=== PATIENT | male | born 1975 | race Caucasian/White ===

== ENCOUNTER 2020-07-24 08:43 | Outpatient (CLI) | payer BC, SELFPAY ==
--- NOTE | ~2020-07-24 | CT_ITS ---
EXAMINATION: CTA chest PE protocol DATE: 07/24/2020 09:14 INDICATION: Shortness of breath. TECHNIQUE: Computed tomography angiography (CTA) of the chest was performed with 100 mL Omnipaque-350 intravenous contrast timed to evaluate the pulmonary arteries. Coronal maximum intensity projection 3D-reconstructions were created by the technologist. Automated exposure control and iterative reconst ruction technique were employed. The dose-length product was 973.55 mGy-cm. COMPARISON: CT abdomen and pelvis 10/07/2017 FINDINGS: The lung volumes are small. There are groundglass opacities in all lobes, likely atelectasi s. No pleural effusion. The heart size is normal. No pericardial effusion. Calcified right hilar lymp h nodes are consistent with old granulomatous disease. There is no pulmonary embolus. There is mild t horacic spondylosis. IMPRESSION: 1. No pulmonary embolus. 2. Small lung volumes with groundglass opacities in all lobes, likely mild atelectasis. Reviewed, dictated and finalized at location B. IMPRESSION: 1. No pulmonary embolus. 2. Small lung volumes with groundglass opacities in all lobes, likely mild atel ectasis.
== END 2020-07-24 08:44 | disposition home or self-care (01) ==
PROVIDERS: PCP Physician Assistant; Visit Provider Physician Assistant
DX: R79.1 Abnormal coagulation profile (principal); R91.8 Other nonspecific abnormal finding of lung field
CPT/HCPCS: 71275; Q9967

== ENCOUNTER 2021-04-22 07:34 | Outpatient (CLI) | payer BC, SELFPAY ==
--- NOTE | 2021-04-28 15:34 | P.SLEEP_ITS ---
Sleep Study - Home Unattended Date of Study: 04/22/21 Ordering Provider: Jennyfer Aleman, PAGillianC Interpreting Provider: Deanne Tidwell DO Home Sleep Study Type: Apnea Link Air Height: 1.88 m Weight: 138.346 kg Body Mass Index: 39.1 Neck Circumference (inches): 18 Reason for Sleep Study Witnessed apneas by spouse Sleep History The patient is a 46-year-old male with hypertension, anxiety, depression, ADHD, hypogonadism, and Chiari malformation that had a home sleep test ordered by his primary care due to the patient's spouse witnessing apneic events. *The patient did not bring back to sleep intake forms.* [facility] Past Medical History Medical History ADHD (attention deficit hyperactivity disorder), inattentive type Anxiety Chiari malformation Depression HTN (hypertension) Medications Home Medications Medication Instructions Recorded Confirmed Type bupropion HCl 150 mg PO QAM 04/28/21 04/28/21 History losartan 50 mg PO DAILY 04/28/21 04/28/21 History methylphenidate HCl 18 mg PO QAM 04/28/21 04/28/21 History methylphenidate HCl 54 mg PO QAM 04/28/21 04/28/21 History sildenafil (pulm.hypertension) See Rx Instructions .ROUTE .COMPLEX 04/28/21 04/28/21 History Sleep Procedure This test was performed using 4 channel monitoring including respiratory effort channel, snoring channel, heart rate channel, and oxygen saturation channel. This study was scored using CMS guidelines. Sleep Architecture The patient had a total recording time 10 hours 36 minutes and total monitoring time of 9 hours 11 minutes. The patient spent 3 hours 12 minutes, 34.8% of tunneled monitoring time in the supine position. Respiratory Analysis The patient had an AHI of 23.1 and central apnea index of 0.3. The supine AHI was 33.1. The patient had 5 apneas and 207 hypopneas. No Wilian-Naylor respirations were seen. Oximetry Data The patient had a baseline oxygen saturation of 97% and an average oxygen saturation of 94%. The lowest recorded oxygen saturation was 81%. The patient had 213 oxygen desaturations resulting in an oxygen desaturation index of 23.2. The patient spent 38 minutes, 7% of total monitoring time with an oxygen saturation less than 88%. Snoring Profile Snoring was present throughout the majority of the study. Cardiac Profile The patient had an average pulse 65 beats per minute with a minimum pulse 47 beats per maximum pulse of 106 beats per minute. Assessment and Plan Assessment and Plan (1) RAMA (obstructive sleep apnea): Code(s): G47.33 - Obstructive sleep apnea (adult) (pediatric) Status: Acute Assessment and Plan: The patient had an AHI of 23.1 which is consistent with moderate sleep apnea. Due to the patient's Chiari malformation, I recommend that the patient have an in-lab PAP titration study. The patient is more predisposed to developing central sleep apnea due to his Chiari malformation. Data The data obtained during this sleep study is adequate for interpretation. Certification This sleep study has been reviewed by a board certified sleep medicine physician.
[2021-04-28 15:49] VITALS: BMI 39.1
== END 2021-04-23 12:05 | disposition home or self-care (01) ==
LOC: ANHCSM 07:35
PROVIDERS: PCP Physician Assistant; Visit Provider Physician Assistant
DX: R06.81 Apnea, not elsewhere classified (principal)
CPT/HCPCS: 95806

== ENCOUNTER 2021-06-19 07:40 | Outpatient (CLI) | payer BC, SELFPAY ==
--- NOTE | 2021-07-03 08:54 | WPDSLEEPSTUD ---
Sleep Study Date of Study: 06/19/21 Ordering Provider: Jennyfer Aleman PA-C UNKNOWN,DOCTOR Interpreting Physician: Leesa Gillespie MD Sleep Study Type: CPAP Titration Height: 1.88 m Weight: 136.078 kg Body Mass Index: 38.5 Neck Circumference (inches): 18 Moffit: 4 Reason for Sleep Study * 04/22/2021 Home Sleep Apnea Test with moderate obstructive sleep apnea, apnea-hypopnea index 23.2, desaturation to 81%; patient presents for CPAP titration Sleep History Paul Mills is a 46 year old man with Chiari malformation, depression and ADHD. The Chiari malformation predisposes him to central apneas, therefore he presents for an in-lab CPAP titration. His sleep complaints included waking often at night, restless sleep and loud snoring. He occasionally awakens at night feeling short of breath. He does not wake at night with heartburn, belching or coughing. Rarely has trouble sleeping with a cold. He constatnly has breathing problems at night observed by others. He occasionally sweats excessively at night. He rarely notices his heart pounding at night, and rarely falls asleep in the day. He does not fall asleep involuntarily or while driving. There is not loss of muscle tone with strong emotion. He does not have daytime problems due to excessive sleepiness. He does not feel paralyzed on waking or falling asleep, is not afraid to go to sleep, does not have nightmares. He does not remember his dreams or have racing thought. He frequently feels depressed. He rarely has anxiety. Denies muscular tension, parts of his body jerking at night, kicking during sleep, or having uncomfortable feelings in his legs at night. He does not have leg pain at night, nor does he have morning jaw pain. He rarely grinds his teeth at night. He is not bothered by pain in the day or during the night. He is not waking up feeling stiff in the morning with sore muscles or pain in the neck and spine. He has concentration difficulties. Normal bedtime on week nights is between 8:00 p.m. and 9:00 p.m., taking 20 - 45 minutes to fall asleep, sometimes as long as an hour or two hours. He typically wakes 3-4 times at night, sometimes makes a trip to the bathroom, and then returns to sleep quickly. He wakes between 4:00 am and 5:00 a.m. on weekdays. On weekends, he goes to bed between 9:00 p.m. and 10:00 p.m., and wakes between 5:00 a.m. and 7:00 a.m.. He does not take naps, although a short nap may be refreshing. He feels better in the morning compared to other times of day. Habits: Former tobacco smoker. Caffeine: 4-5 cups a day. No alcohol or recreational drugs. [facility] Past Medical History Medical History ADHD (attention deficit hyperactivity disorder), inattentive type Anxiety Chiari malformation Depression HTN (hypertension) Social History Social History (Updated 07/03/21 @ 13:25 by Leesa Gillespie MD) Smoking status: Former smoker Medications Home Medications Medication Instructions Recorded Confirmed Type bupropion HCl 150 mg PO QAM 04/28/21 04/28/21 History losartan 50 mg PO DAILY 04/28/21 04/28/21 History methylphenidate HCl 18 mg PO QAM 04/28/21 04/28/21 History methylphenidate HCl 54 mg PO QAM 04/28/21 04/28/21 History sildenafil (pulm.hypertension) See Rx Instructions .ROUTE .COMPLEX 04/28/21 04/28/21 History Sleep Procedure This test was performed using the Crew multiple channel system including EOG, EEG, submental EMG, EKG, nasal and oral airflow using thermistors and nasal pressure sensors, chest and abdominal belts for body position data, and pulse oximetry. Video monitoring was also performed. The study was scored using CMS guidelines. The patient was started on CPAP using a medium ResMed N30 I nasal mask and humidity with initial pressure 5 cm with 2 cm EPR added for comfort. Pressure was titrated, and at 7 cm he switched to a medium ResMed AirTouch F20 full face mask. The final pressure wa
[2021-07-03 13:33] VITALS: BMI 38.5
== END 2021-06-20 05:27 | disposition home or self-care (01) ==
LOC: ANHCSM 07:41
PROVIDERS: PCP Physician Assistant
DX: G47.33 Obstructive sleep apnea (adult) (pediatric) (principal)
CPT/HCPCS: 95811

== ENCOUNTER 2022-01-21 10:48 | Emergency (ER) | payer BC, SELFPAY ==
[2022-01-21 11:03] VITALS: BP 150/83; PULSE 80; RESP 18; TEMP 36.7; O2SAT 98
--- NOTE | 2022-01-21 11:19 | ED.URI ---
HPI - URI/Sore Throat General Chief Complaint: Upper Respiratory Infection Stated Complaint: body ache, sore throat, chest congestion Time Seen by Provider: 01/21/22 11:19 Source: patient Mode of arrival: ambulatory Limitations: no limitations History of Present Illness HPI Narrative: 46-year-old male presents with complaint of sore throat, fatigue, body, decreased appetite for 4 days. Reports that sore throat is getting progressively worse. Denies nausea vomiting diarrhea. No cough or congestion. All systems reviewed and negative except as noted above. Related Data Home Medications Medication Instructions Recorded Confirmed losartan 50 mg tablet 50 mg PO DAILY 04/28/21 04/28/21 amlodipine 2.5 mg tablet 2.5 mg PO DAILY 01/21/22 01/21/22 Allergies Allergy/AdvReac Type Severity Reaction Status Date / Time No Known Allergies Allergy Verified 01/21/22 11:29 Review of Systems Review of Systems: CONSTITUTIONAL: Denies fever, chills, or sweats. reports fatigue and decreased appetite. EYES: Denies visual changes, redness, or discharge. ENT: Denies rhinorrhea, congestion . Reports sore throat. Denies otalgia. CARDIOVASCULAR: Denies chest pain, palpitations, or edema. RESPIRATORY: Denies cough or dyspnea. GASTROINTESTINAL: Denies abdominal pain, nausea, vomiting, or diarrhea. GENITOURINARY: Denies dysuria or hematuria. SKIN: Denies rash or itching. MUSCULOSKELETAL: Denies back pain, joint pain . Reports myalgia. NEUROLOGIC: Denies headache, numbness, or weakness. PSYCHIATRIC: Denies anxiety or depression. All other systems reviewed are negative, except as documented in HPI. PMFSH Past Medical History Medical History ADHD (attention deficit hyperactivity disorder), inattentive type Anxiety Chiari malformation Depression HTN (hypertension) Social History Social History (Updated 07/03/21 @ 13:25 by Leesa Gillespie MD) Smoking status: Former smoker Comments At time of signature, agree with nursing past medical, surgical, social and family history. There is no relevant family history pertinent to the presenting complaint. Exam Narrative: GENERAL: This is a well-nourished, well-developed patient, in no apparent distress. HEAD: normocephalic, atraumatic. EYES: PERRL. Sclera clear/white. Vision is grossly intact. EARS: External ears normal, auditory canals clear and without drainage, TMs normal without perforation. Hearing grossly intact. NOSE: External nose normal with no obvious nasal discharge, nares without redness, no rhinorrhea. THROAT: Mucous membranes moist. Beefy red, swollen. No exudates. NECK: Neck supple, Tender cervical lymphadenopathy, no masses or thyromegaly. CARDIOVASCULAR: Regular rate and rhythm without murmurs, gallops, or rubs. RESPIRATORY: Clear to auscultation. Breath sounds equal bilaterally. No wheezes, rales, or rhonchi. SKIN: warm, Dry, intact with no suspicious lesions or rash, good texture and turgor. NEURO: awake, alert, and oriented to person, place and time. There were no obvious focal neurologic abnormalities. EXTREMITIES: No joint tenderness, effusion, or edema noted. Course Course Level of Care: Express Care Visit Vital Signs Vital signs: Vital Signs Temperature 36.7 C 01/21/22 11:03 Pulse Rate 80 01/21/22 11:03 Respiratory Rate 18 01/21/22 11:03 Blood Pressure 150/83 H 01/21/22 11:03 Pulse Oximetry 98 01/21/22 11:03 Oxygen Delivery Room Air 01/21/22 11:03 Temperature 36.7 C 01/21/22 11:03 Pulse Rate 80 01/21/22 11:03 Respiratory Rate 18 01/21/22 11:03 Blood Pressure 150/83 H 01/21/22 11:03 Pulse Oximetry 98 01/21/22 11:03 Oxygen Delivery Room Air 01/21/22 11:03 reviewed MDM - URI/Sore Throat MDM Narrative Medical decision making narrative: Patient is aware of diagnosis, understands and agrees to treatment plan. Anticipatory guidance given. Patient
== END 2022-01-21 11:30 | disposition home or self-care (01) ==
PROVIDERS: Emergency Provider Nurse Practitioner Family; PCP Physician Assistant
DX: J02.0 Streptococcal pharyngitis (principal); I10 Essential (primary) hypertension; Z87.891 Personal history of nicotine dependence
CPT/HCPCS: 87880; 99213; G0463

== ENCOUNTER 2022-03-21 13:35 | Emergency (ER) | payer BC, SELFPAY ==
--- NOTE | 2022-03-21 13:43 | ED_ITS ---
HPI - URI/Sore Throat General Stated Complaint: Unknown Time Seen by Provider: 03/21/22 13:36 Related Data Home Medications Medication Instructions Recorded Confirmed losartan 50 mg tablet 50 mg PO DAILY 04/28/21 01/21/22 amlodipine 2.5 mg tablet 2.5 mg PO DAILY 01/21/22 01/21/22 Allergies Allergy/AdvReac Type Severity Reaction Status Date / Time No Known Allergies Allergy Verified 01/21/22 11:29 [facility], [facility] Past Medical History Medical History ADHD (attention deficit hyperactivity disorder), inattentive type Anxiety Chiari malformation Depression HTN (hypertension) Social History Social History (Updated 07/03/21 @ 13:25 by Leesa Gillespie MD) Smoking status: Former smoker Discharge Plan Discharge Prescriptions: No Action amoxicillin 500 mg tablet 500 mg PO Q12H 10 Days Qty: 20 0RF amlodipine 2.5 mg tablet 2.5 mg PO DAILY losartan 50 mg Tablet 50 mg PO DAILY Follow-up/Referrals: Love,RAHEL Burger [Primary Care Provider] -
[2022-03-21 13:46] VITALS: BP 168/92; PULSE 68; RESP 18; TEMP 36.4; O2SAT 99
--- NOTE | 2022-03-21 13:47 | ED.SKABFB ---
HPI - Skin/Abscess/Foreign Bdy General Stated complaint: Unknown Time Seen by Provider: 03/21/22 13:36 Source: patient Mode of arrival: ambulatory Limitations: no limitations History of Present Illness HPI narrative: Mr. Mills is a 47-year-old male patient presenting to clinic today with complaints of pain to his right lateral thumb. States that he may have something under the nail. Started bothering him last night stay. Does wear gloves at work. Does not recall being struck by anything. Area is swollen, erythemic, red, and tender. Related Data Home Medications Medication Instructions Recorded Confirmed losartan 50 mg tablet 50 mg PO DAILY 04/28/21 01/21/22 amlodipine 2.5 mg tablet 2.5 mg PO DAILY 01/21/22 01/21/22 Allergies Allergy/AdvReac Type Severity Reaction Status Date / Time No Known Allergies Allergy Verified 01/21/22 11:29 Review of Systems Review of Systems: Pertinent positives per HPI. Patient denies any fever, chills, rash, headache, visual changes, dizziness, cough, runny nose, sore throat, shortness of breath, chest pain, palpitations, nausea, vomiting, diarrhea, constipation, abdominal pain, or any urinary issues. [facility] Past Medical History Medical History ADHD (attention deficit hyperactivity disorder), inattentive type Anxiety Chiari malformation Depression HTN (hypertension) Social History Social History Smoking status: Former smoker Comments At the time of my signature, I reviewed and agree with the nursing past medical, surgical, social, and family history. There is no relevant family history pertinent to the patient complaint. Exam Narrative: General: Well-developed, well nourished, in no apparent distress Head: Normocephalic, atraumatic. Cardio: Regular rate and rhythm, s1 and s2 normal, no murmur appreciated. Resp: Clear to auscultation bilaterally, no rhonchi, rales, wheezing or rubs. Integumentary: [place], warm, and dry, intact without lesion, redness, swelling, tenderness, and erythema noted to the left lateral thumb-dark brown discoloration under skin. Course Course Emergency Course: Portions of this record may have been created with voice recognition software. Level of Care: Express Care Visit Vital Signs Vital signs: Vital Signs Temperature 36.4 C 03/21/22 13:46 Pulse Rate 68 03/21/22 13:46 Respiratory Rate 18 03/21/22 13:46 Blood Pressure 168/92 H 03/21/22 13:46 Pulse Oximetry 99 03/21/22 13:46 Oxygen Delivery Room Air 03/21/22 13:46 Temperature 36.4 C 03/21/22 13:46 Pulse Rate 68 03/21/22 13:46 Respiratory Rate 18 03/21/22 13:46 Blood Pressure 168/92 H 03/21/22 13:46 Pulse Oximetry 99 03/21/22 13:46 Oxygen Delivery Room Air 03/21/22 13:46 Vital signs reviewed Procedures Abscess I/D thumb: Date of Incision: 03/21/22 Side (if applicable): left Local Anesthetic: lidocaine 1% Amount of anesthesia used (mL): 0.5 Technique: needle aspiration Amount of fluid expressed (mL): 1 Irrigation: Yes Packing used?: none I&D Results: Pus and Blood Abcess I&D Additional Comments: Verbal consent obtained for incision and drainage. Risk and benefits explained and patient voiced understanding. Area was cleansed with Primaderm. Area was prepped and draped using sterile technique. 25 gauge needle was then used to instill (0.5) ml of lidocaine without epi into the wound edges. Patient tolerated well and anesthesia was appropriate. An 18 gauge needle was then used to make a stab incision over the abscess. Brown/white bloody exudate expressed from cavity. Patient tolerated procedure well. No soft tissue foreign body visualized or palpable. MDM - Skin/Abscess/Foreign Bdy MDM Narrative Medical decision making narrative: At the time of visit patient is
== END 2022-03-21 14:00 | disposition home or self-care (01) ==
PROVIDERS: Emergency Provider Nurse Practitioner Family; PCP Physician Assistant
DX: L02.512 Cutaneous abscess of left hand (principal); I10 Essential (primary) hypertension; Z87.891 Personal history of nicotine dependence; F90.9 Attention-deficit hyperactivity disorder, unspecified type
CPT/HCPCS: 26010; 99213; G0463

== ENCOUNTER 2022-08-12 17:41 | Emergency (ER) | payer BC, SELFPAY | END 2022-08-12 18:34 | disposition home or self-care (01) | PROVIDERS: Emergency Provider Nurse Practitioner Family; PCP Physician Assistant | DX: J02.9 Acute pharyngitis, unspecified (principal); R53.83 Other fatigue; Z20.822 Contact with and (suspected) exposure to COVID-19 | CPT/HCPCS: 86308; 87070; 87081; 87426; 87880; 99213; C9803; G0463 ==

== ENCOUNTER 2023-10-23 13:46 | Emergency (ER) | payer BC, SELFPAY ==
--- NOTE | ~2023-10-23 | XR_ITS ---
EXAMINATION: XR chest 1V portable Exam Date/Time: 10/23/2023 17:53 CDT HISTORY: cough, sob Comparison: CTPA 07/24/2020. RESULT: Lines, tubes, and devices: None. Lungs and pleura: Clear. Cardiomediastinal silhouette: Stable. Other: No acute osseous or upper abdominal finding. IMPRESSION: No acute cardiopulmonary process. Reviewed, dictated and finalized at location K.
[2023-10-23 13:47] VITALS: BP 147/81; PULSE 98; RESP 16; TEMP 36.7; O2SAT 96
[2023-10-23 16:59] VITALS: BP 152/101; PULSE 81; RESP 17; RESP 18; O2SAT 96
--- NOTE | 2023-10-23 17:37 | ECG_ITS ---
Test Date: 2023-10-23 17:50:44 Measurements Intervals [place] Rate: 92 P: 48 DC: 145 QRS: -60 QRSD: 112 T: 30 QT: 346 QTc: 428 Interpretive Statements SINUS RHYTHM WITH SINUS ARRHYTHMIA POSSIBLE LEFT ATRIAL ENLARGEMENT [-0.1mV P WAVE IN V1/V2] INCOMPLETE RIGHT BUNDLE BRANCH BLOCK [90+ ms QRS DURATION, TERMINAL R IN V1/V2, 40+ ms S IN I/aVL/V4/V5/V6] LEFT ANTERIOR FASCICULAR BLOCK [QRS AXIS <= -45, QR IN I, RS IN II] No previous ECG available for comparison Electronically Signed On 10-24-2023 10:33:48 CDT by Jerome Mcclain M.D.
[2023-10-23] MEDS: SODIUM CHLORIDE 0.9% IV 1,000 ML 999 ML IV CONT ×2 (17:42→18:57)
--- NOTE | 2023-10-23 17:52 | ED.RECABL ---
HPI - Recheck/Abnormal Lab/Rx General Chief Complaint: Recheck/Abnormal Lab/Rx Stated Complaint: OVERHEATED YESTERDAY Time Seen by Provider: 10/23/23 16:47 History of Present Illness HPI narrative: Patient is a 48-year-old male presenting with concerns for dehydration. Patient states that he works outside. Yesterday he was outside in the heat and he feels that he is just not recovered. He is feeling with weak and keeps having muscle cramps. 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 He denies chest pain, states that he felt a little short of breath walking earlier. States that he feels like he is not able to hydrate enough orally. Related Data Home Medications Medication Instructions Recorded Confirmed losartan 50 mg tablet 50 mg PO DAILY 04/28/21 03/21/22 amlodipine 2.5 mg tablet 2.5 mg PO DAILY 01/21/22 03/21/22 methylphenidate HCl 54 mg 54 mg PO DAILY 03/21/22 03/21/22 tablet,extended release 24 hr Allergies Allergy/AdvReac Type Severity Reaction Status Date / Time No Known Allergies Allergy Verified 03/21/22 14:10 Review of Systems Review of Systems: All systems reviewed & are unremarkable except as noted in HPI and below PMFSH Past Medical History Medical History ADHD (attention deficit hyperactivity disorder), inattentive type Anxiety Chiari malformation Depression HTN (hypertension) Social History Social History Smoking status: Former smoker Exam Narrative: GENERAL: Well-appearing, in no acute distress, very pleasant cooperative HEAD: Normocephalic, atraumatic. EYES: PERRLA and EOMI. ENT: Mucous membranes moist. NECK: Supple. CHEST: Clear to auscultation. No respiratory distress. HEART: Regular rate and rhythm ABDOMEN: Soft, nontender, nondistended EXTREMITIES: Normal range of motion. No edema. No muscle soreness with palpation of legs or arms SKIN: Warm, dry, no rash. NEURO: No focal deficits. Alert and oriented x3. PSYCH: Normal mood and affect. Course Vital Signs Vital signs: Vital Signs Temperature 98.1 F 10/23/23 13:47 Pulse Rate 98 10/23/23 13:47 Respiratory Rate 16 10/23/23 13:47 Blood Pressure 147/81 H 10/23/23 13:47 Pulse Oximetry 96 10/23/23 13:47 Temperature 98.1 F 10/23/23 13:47 Pulse Rate 81 10/23/23 16:59 Respiratory Rate 17 10/23/23 16:59 Blood Pressure 152/101 H 10/23/23 16:59 Pulse Oximetry 96 10/23/23 16:59 Fraction of Inspired Oxygen 97 10/23/23 16:59 MDM - Recheck/Abnormal Lab/Rx MDM Narrative Medical decision making narrative: 48-year-old male presenting with concerns for dehydration after working in the heat all day yesterday. Patient is slightly hypertensive, otherwise vitals are within normal limits. Exam is remarkable for the above. Chest x-ray is unremarkable. EKG per my interpretation shows normal sinus rhythm, incomplete right bundle-branch, no ST elevations or depressions. Blood work with elevated creatinine and BUN. CK is only very minimally elevated. Does not meet criteria for rhabdomyolysis. Patient received a L of fluid states that he is already starting to feel better. Will give him another L and then feel he is safe for discharge. Patient actually just saw a new PCP last week and he has outpatient blood work set up for this Wednesday. Advised that he call his PCP on Wednesday to let them know he was here. Appropriate return precautions given. Discharged in stable condition. Differential Diagnosis Differential diagnosis: Likely other (Dehydration, muscle spasms, cramps, electrolyte derangement) Medical Records Attestation: I reviewed the patient's medical records. Lab Data Attestation: I reviewed the patient's lab results. 10/23/23 17:44 10/23/23 17:44 Labs: Lab Results 10/23/23 Range/Units 17:44 WBC 7.3 (4.5-10.0) K/mm3 RBC 5.56
[2023-10-23 17:56] LABS: Basophils Absolute Auto 0.1 K/mm3 (0.0-0.1); Basophils Percent Auto 0.8 % (0.2-1.2); Eosinophils Absolute Auto 0.2 K/mm3 (0-0.3); Eosinophils Percent Auto 2.5 % (0-4.4); Hematocrit 50.9 % (42.0-52.0); Hemoglobin 17.8 g/dL (14.0-18.0); Immature Granulocyte Absolute 0.02 K/mm3 (0.00-0.031); Immature Granulocyte Percent A 0.3 % (0-0.5); Lymphocytes Absolute Auto 2.49 K/mm3 (0.9-3.2); Lymphocytes Percent Auto 34.3 % (18.3-44.2); Mean Corpuscular Volume 91.5 fl (80-100); Mean Platelet Volume 9.1 fl (7.4-10.4); Monocytes Absolute Auto 0.7 K/mm3 (0.1-0.6); Monocytes Percent Auto 9.9 % (2.6-8.5); Neutrophils Absolute Auto 3.8 K/mm3 (1.3-6.7); Neutrophils Percent Auto 52.2 % (45.5-73.1); Platelet Count Result 238 k/mm3 (150-375); Red Blood Count 5.56 M/mm3 (4.6-6.20); Red Cell Distribution Width 13.3 % (11.5-14.5); White Blood Count 7.3 K/mm3 (4.5-10.0)
[2023-10-23 18:06] LABS: Alanine Aminotransferase 24 U/L (6-50); Albumin Level 4.6 g/dL (3.5-5.1); Alkaline Phosphatase 55 U/L (38-126); Anion Gap 12 mmol/L (4-12); Aspartate Amino Transferase 29 U/L (17-59); Bilirubin,Total 0.8 mg/dL (0.2-1.3); Blood Urea Nitrogen 30 mg/dL (9-20); Calcium 9.3 mg/dL (8.4-10.2); Carbon Dioxide 23 mmol/L (22-30); Chloride 100 mmol/L (98-107); Creatine Kinase 249 U/L (55-170); Estimated CRCL calculation 87 ml/min; Estimated Glomerular Filt Rate 54; Glucose 89 mg/dL (65-110); Sodium 135 mmol/L (137-145)
[2023-10-23 18:13] LABS: Magnesium 2.1 mg/dL (1.6-2.3)
== END 2023-10-23 20:21 | disposition home or self-care (01) ==
PROVIDERS: Emergency Provider Emergency Medicine; PCP Physician Assistant
DX: E86.0 Dehydration (principal); R25.2 Cramp and spasm; I10 Essential (primary) hypertension; F90.9 Attention-deficit hyperactivity disorder, unspecified type; Z87.891 Personal history of nicotine dependence; I45.10 Unspecified right bundle-branch block; R94.31 Abnormal electrocardiogram [ECG] [EKG]
CPT/HCPCS: 36415; 71045; 80053; 82550; 83735; 85025; 93005; 96360; 96361; 99283; J7030